=== PATIENT | male | born 2005 | race Caucasian/White ===

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

== ENCOUNTER 2023-02-19 10:33 | Emergency (ER) | payer OTHER ==
[2023-02-19] MEDS ORDERED: Ketorolac Tromethamine 30 MG/ML VIAL ONE (10:50)
[2023-02-19 11:33] LABS: #Monocytes 0.5 thou/uL (0.11-0.59); #Neutrophils 5.8 thou/uL (1.40-6.50); %Basophils 0.3 % (0.0-1.0); %Eosinophils 0.1 % (0.0-10.0); %Lymphocytes 11.6 % (28.0-48.0); %Monocytes 7.3 % (0.0-4.0); %Neutrophils 80.4 % (31.0-61.0); Hematocrit 43.5 % (42.0-52.0); Hemoglobin 14.1 g/dL (14.0-18.0); Mean Corpuscular HGB CONC 32.4 g/dL (32.0-36.0); Mean Corpuscular Hemoglobin 28.6 pg (25.0-35.0); Mean Corpuscular Volume 88.2 fl (78.0-98.0); Mean Platelet Volume 11.3 fL (7.4-10.4); Platelet Count 148 10x3/uL (130-400); RBC Distribution Width 13.2 % (11.5-14.5); Red Blood Cell (RBC) Count 4.93 mill/uL (4.00-5.20); White Blood Cell (WBC) Count 7.3 10x3/uL (4.8-10.8)
[2023-02-19 11:51] LABS: Actual Bicarbonate (HCO3v) 21.9 mEq/L (22-28); Base Excess -2.8 mEq/L (-2.0 to +3.0); Calcium, Ionized (venous) 1.03 mmol/L (1.16-1.32); Chloride (VBG) 103 mmol/L (98-106); Hematocrit-VBG 46 % (42.0-52.0); Hemoglobin (Hb) 15.5 g/dL (13.2-17.3); Potassium (VBG) 3.77 mmol/L (3.70-5.30); Sodium 138.1 mmol/L (133-146); pH (venous) 7.378 (7.32-7.43)
[2023-02-19 11:58] LABS: ALT (SGPT) 23 U/L (8-55); AST (SGOT) 23 U/L (10-45); Albumin 4.7 g/dL (3.5-5.0); Alkaline Phosphatase 81 U/L (50-130); Anion Gap 15 mmol/L (10-20); BUN (Urea Nitrogen) 11 mg/dL (8.4-21.0); CK (CPK) 211 U/L (30-200); Calc. Creatinine Clearance 0 mL/min (70-130); Calcium 9.5 mg/dL (7.8-10.44); Carbon Dioxide 22 mmol/L (22-29); Chloride 105 mmol/L (98-107); Estimated GFR 57; Glucose 88 mg/dL (70-105); Magnesium 1.6 mg/dL (1.7-2.2); Potassium 4.1 mmol/L (3.5-5.1); Protein, Total 6.7 g/dL (6.0-8.3); Sodium 138 mmol/L (136-145)
== END 2023-02-19 12:10 | disposition home or self-care (01) ==
LOC: ERS 10:33
DX: T67.5XXA Heat exhaustion, unspecified, initial encounter (principal); E86.0 Dehydration
CPT/HCPCS: 36415; 71045; 80053; 82550; 82805; 83605; 83735; 85025; 93005; 96361; 96374; J1885

== ENCOUNTER 2023-06-25 11:57 | Emergency (ER) | payer BC, OTHER ==
[2023-06-25] MEDS ORDERED: Boostrix 0.5 ML (Tdap) VIAL (>/=7 yrs of age) ONE (12:06)
[2023-06-25] MEDS ORDERED: Lidocaine 1% PF 5 ML VIAL ONE (12:11)
[2023-06-25] MEDS ORDERED: Bacitracin 1 PK ONE (12:44)
== END 2023-06-25 12:42 | disposition home or self-care (01) ==
LOC: ERS 11:57
DX: S61.214A Laceration without foreign body of right ring finger without damage to nail, initial encounter (principal); Z23 Encounter for immunization; W26.0XXA Contact with knife, initial encounter
CPT/HCPCS: 12001; 90471; 90715